=== PATIENT | female | born 1980 | race Hispanic/Latino ===

== ENCOUNTER 2017-08-12 14:01 | Inpatient (IN) | payer SELFPAY ==
[2017-08-12] MEDS ORDERED: diphenhydrAMINE 25 MG CAP PO PRN (17:03)
[2017-08-12] MEDS ORDERED: Ondansetron HCl/PF 4 MG/2 ML Vial IVP PRN (17:03)
[2017-08-12] MEDS ORDERED: Acetaminophen 325 MG TAB PO PRN (17:03)
[2017-08-12] MEDS ORDERED: Mag-Al 1200 mg/1200 mg/30 ML UDCUP PO PRN (17:03)
[2017-08-12] MEDS ORDERED: Bisacodyl 5 MG TAB PO PRN (17:03)
[2017-08-12] MEDS ORDERED: hydrALAZINE 20 MG/ML VIAL SLOW IVP PRN (17:03)
[2017-08-12] MEDS: Sodium Chloride 0.9% 1,000 ML IV SCH (18:20)
[2017-08-12 18:27] VITALS: BMI 24.4
--- NOTE | 2017-08-12 20:04 | CON ---
DATE OF CONSULTATION: 08/12/2017 REQUESTING PHYSICIAN: Dr. Ames. HISTORY OF PRESENT ILLNESS: Ms. Pérez is a 36-year-old woman who was seen earlier today [facility]. The patient presented with 2-day history of crampy abdominal pain, which was initially periumbilical but now diffuse. Pain is rated at 8/10. The patient underwent workup there including a CT scan of the abdomen and pelvis, which was suspiciou s for small-bowel obstruction. Hence, she was transferred to [facility] for upper level of care. At the time of my evaluation, the patient is awake and alert. She reported having had two bouts of bilious emesis in [place] prior to transfer. Currently, she reports 4/10 abdominal pain. She has a nasogastric tube in place, which returns a very scant nonbilious effluent about 20 mL, the tube hassan s been there for over 2 hours now. She denies any fevers or chills. Last bowel movement was 2 days ago, although she has a history of chronic constipation. Last time, she passed flatus was last night . The patient denies any unexplained weight loss. PAST MEDICAL HISTORY: She denies any significant medical problems. PAST SURGICAL HISTORY: Pertinent for laparoscopic cholecystectomy in 2015. She also has had bilater al tubal ligation. FAMILY HISTORY: Notable for heart disease and essential hypertension. She denies any family history of cancer or inflammatory bowel disease. SOCIAL HISTORY: She is and lives at home with her and 4 little children. She denies any cigarette smoking, ethanol or illicit drug abuse. PREHOSPITALIZATION MEDICATIONS: None. ALLERGIES: Patient denies any known drug allergies. REVIEW OF SYSTEMS: A 10-point review of systems essentially unremarkable except for as stated in pas t medical history and chief complaint. PHYSICAL EXAMINATION: GENERAL: This reveals a 36-year-old normally developed woman who is otherwise coherent and interacti ve and appears stated age. The patient is alert and oriented x3, appears to be in no significant acu te distress at the time of my evaluation. VITAL SIGNS: Includes blood pressure 104/72, pulse 94, respiratory rate 19, temperature 98.5 degrees Fahrenheit, oxygen saturation is 95% on room air. HEENT: Reveals normocephalic and atraumatic. Pupils are equal, round, and reactive to light and acc ommodation. Extraocular muscles are intact bilaterally. She has no sclerae icterus present. Oral m ucosa is pink and moist. No lesions are noted. HEART: Reveals regular rate and rhythm, no murmurs or gallops auscultated. LUNGS: Clear to auscultation bilaterally. Her breathing regular and unlabored. ABDOMEN: Soft and nondistended. She has moderate tenderness with deep palpation. She has no gross rebound tenderness present. Liver and spleen are nonpalpable below costal margins. EXTREMITIES: Reveals 2+ radial and pedal pulses bilaterally. No ankle edema is present. NEUROLOGIC: Reveals no focal deficits present. ACCOMPANYING LABORATORY STUDIES: Includes a CBC with 10,500 white blood cells, hemoglobin 14.8, danilo tocrit is 40.5, platelet count is 289,000. Metabolic profile: Sodium 141, potassium 3.9, chloride i s 100, bicarbonate 29, BUN 9.1, creatinine is 0.8, glucose 106. AST and ALT are 21 and 21 respective ly. Serum lipase is normal at 15. IMAGING: I personally reviewed the CT scan of the abdomen and pelvis obtained in [place], which re veals distended loops of small bowel with no significant clear transition zone, although distal ileum appears to be decompressed. There is, however, gas in the colon and rectum. IMPRESSION: Abdominal pain, likely gastroenteritis versus acute partial small-bowel obstruction. RECOMMENDATIONS: The nasogastric tube could be discontinued and patient initiated on clear liquid di et. I encouraged her to ambulate to avoid complications of venous thromboembolism. There is no acut e surgical indication for this patient at this time; however, General Surgery will continue to follow the patient along with serial physical examination and make further recommendations as necessary. A sajan findings and plan discussed with the patient and her at bedside. They both indicated un derstanding of the information given. I have answered their questions. Thank you again, Dr. Ames, for allowing me the opportunity to participate in the care of this pablo ent.
--- NOTE | 2017-08-12 23:05 | HP ---
DATE OF ADMISSION: 08/12/2017 PRIMARY CARE PHYSICIAN: Maritza steen. REASON FOR ADMISSION: Abdominal pain. HISTORY OF PRESENT ILLNESS: Ms. Melanie Merino is a 36-year-old female with no significant past medica l history, who presents to the emergency room complaining of abdominal pain in the epigastric area, w hich began yesterday. She states she has had nausea and vomiting. She states her last bowel movemen t was 1-1/2 days ago. She does not recall the last time she passed gas. No fevers, no urinary sympt oms has been reported. She states she never had pain like this before. She denies any sick contacts or eating anything out of the ordinary. The patient then presented to the [facility] at which time a CAT scan was performed and revealed a partial or hyperacute distal small-bowel obstru ction as well as no CT evidence of urinary tract obstruction or calcification. She was then subseque ntly transferred to [place] for higher level of care. An NG tube was placed in the emergency room here and has been subsequently taken out by the general surgeon. Currently, she is resting comforta kristen. She denies any other discomfort except for in her abdomen. She will be now admitted to the [facility] for further evaluation. PAST MEDICAL HISTORY: Reviewed and none. PAST SURGICAL HISTORY: 1. Tubal ligation. 2. Cholecystectomy. CODE STATUS: FULL CODE. SOCIAL HISTORY: The patient denies any alcohol use, no tobacco use, no illicit drug use. MEDICATIONS: Reviewed and none. ALLERGIES: Reviewed and none. FAMILY HISTORY: Reviewed and noncontributory. REVIEW OF SYSTEMS: The following complete review of systems was negative, unless otherwise mentioned in the HPI or below: Constitutional: Weight loss or gain, sense of well-being, ability to conduct usual activities, exerc ise tolerance. Skin/Breast: Rash, itching, changes in hair growth or loss, nail changes, breast lumps, tenderness, swelling, nipple discharge. Eyes: Vision, double vision, tearing, blind spots, pain. ENT/Mouth: Headaches (location, time of onset, duration, precipitating factors), vertigo, lightheade dness, injury. Vision, double vision, tearing, blind spots, pain, nose bleeding, colds, obstruction, discharge, dental difficulties, gingival bleeding, dentures, neck stiffness, pain, tenderness, masses in thyroid or other areas. Cardiovascular: Precordial pain, substernal distress, palpitations, syncope, dyspnea on exertion, or thopnea, nocturnal paroxysmal dyspnea, edema, cyanosis, hypertension, heart murmurs, varicosities, ph lebitis, claudication. Respiratory: Pain, shortness of breath, wheezing, stridor, cough, hemoptysis, fever or night sweats. Gastrointestinal: Poor appetite, dysphagia, indigestion, abdominal pain, heartburn, eructation, naus ea, vomiting, hematemesis, jaundice, constipation, or diarrhea, abnormal stools (alexa-colored, tarry, bloody, greasy, foul smelling), flatulence, hemorrhoids, recent changes in bowel habits. Genitourinary: Urgency, frequency, dysuria, nocturia, hematuria, polyuria, oliguria, unusual (or geovany nge in) color of urine, stones, hesitancy, change in size of stream, dribbling, acute retention or in continence, libido, potency. Musculoskeletal: Pain, swelling, redness or heat of muscles or joints, limitation, of motion, muscul ar weakness, atrophy, cramps. Neurologic/Psychiatric: Convulsions, paralyses, tremor, incoordination, paresthesias, difficulties w ith memory of speech, sensory or motor disturbances, or muscular coordination (ataxia, tremor), emoti onal problems, anxiety, depression, previous psychiatric care, unusual perceptions, hallucinations. Allergy/Immunologic: Skin rash, anemia, bleeding tendency, polydipsia, polyuria, intolerance to heat or cold. PHYSICAL EXAMINATION: CONSTITUTIONAL/VITAL SIGNS: Blood pressure most recently is 99/64, respirations 15, pulse 94, O2 sat uration 99% on room air, temperature is 98.6. GENERAL: She is in no acute distress, nontoxic appearing. EYES: Pupils are equal, round, and reactive to light and accommodation. No pale conjunctivae. ENT/MOUTH: Moist oral mucosa. No lesions RESPIRATORY: Equal chest wall expansion. No wheezing, rhonchi, or rales. CARDIOVASCULAR: S1, S2 present. No murmurs, gallops or rubs. GASTROINTESTINAL: Soft. She does have tenderness in the epigastric and the left upper quadrant. No rebound tenderness. No peritoneal signs. She has hyperactive bowel sounds. LYMPHATIC: No swollen or painful cervical or axillary lymph nodes. NEUROLOGIC: No ptosis, no facial asymmetry, no tongue deviation or jaw protrusion, no focal deficits . PSYCHIATRIC: Awake, alert and oriented to time, place, and person. Answers questions appropriately. SKIN: Normal skin turgor. LABORATORY AND X-RAY FINDINGS: Laboratory evaluation taken at [facility] and reviewed by me show WBC of 10.5 with hemoglobin 14.8, hematocrit 40.5, platelet count 289,000. Sodium is 141, potassium 3.9, chloride is 100, CO2 is 29, anion gap 16, BUN 9.1, creatinine 0.8, alkaline phosphatase is 77, AST a nd ALT are 21 and 21, amylase 59, lipase 15. UA revealed 0-2 wbcs, few squamous epithelial cells, no bacteria. CT scan of the abdomen and pelvis without contrast revealed no CT evidence of urinary tract obstructi on. There is a partial or hyperacute distal small-bowel obstruction. ASSESSMENT AND PLAN: Ms. Melanie Pérez is a 36-year-old female with no significant past medical hist ory who presents to the emergency room complaining of abdominal pain. 1. Abdominal pain likely secondary to a small-bowel obstruction presented on CT. At this time, the patient will be admitted to the surgical floor. The patient has already been evaluated by the genera l surgeon, who was removed the NG tube as there was little drainage. As per the general surgeon, the re is no acute intervention needed at this time. We will continue to monitor. Restart the patient o n clear liquid diet and advance as tolerated. We will continue with IV fluids. The NG tube has been removed. There is a possibility this may be gastroenteritis versus some irritable bowel syndrome. We will continue to monitor her clinical progress. 2. IV fluids. 3. Check magnesium and phosphorus and replete accordingly. 4. Clear liquid diet. 5. P.r.n. order set. 6. FULL CODE. 7. I have explained all this to the patient and the family at bedside. They are agreeable to the pl an of treatment. All questions have been answered. The patient's further hospital course will be dictated by her clinical course while here.
[2017-08-13 00:10] LABS: RBC/HPF 0-3 HPF (0-3); Renal Epithelial None Seen HPF (0-3); Transitional Epithelial NONE SEEN HPF (0-3)
[2017-08-13 00:11] LABS: Bacteria/HPF 3+ HPF (None Seen); Crystals/HPF None Seen HPF (Negative); Hyaline Casts/LPF NONE SEEN LPF (0-3 Hyaline); Other Casts/LPF None Seen LPF (0-3 Hyaline); Yeast-All Forms None Seen HPF (None Seen)
[2017-08-13] MEDS: Sodium Chloride 0.9% 1,000 ML IV SCH (03:02)
--- NOTE | 2017-08-13 03:52 | PRG ---
DATE OF SERVICE: 08/12/2017 SUBJECTIVE: This is a 36-year-old female seen in consultation by Dr. Mobley earlier today for possibl e small-bowel obstruction. Her NG tube has been removed. She has been started on a clear-liquid t. Patient states she is tolerating said diet without any nausea or vomiting and her abdominal pain is improved. She vocalized no complaint upon my evaluation this evening. OBJECTIVE: VITAL SIGNS: Reviewed and stable. GENERAL: Patient is afebrile, resting in bed in no acute distress. LUNGS: Breathing is nonlabored. ABDOMEN: Soft, nontender, nondistended. Bowel sounds are positive. ASSESSMENT AND PLAN: As documented in daily progress note. Continue care as ordered. Continue to m onitor. If patient continues to tolerate clear liquid diet, we will likely advance first thing in th e a.m.
[2017-08-13 05:13] LABS: #Eosinphils 0.1 thou/uL (0.0-0.7); #Lymphocytes 2.1 thou/uL (1.20-3.40); #Monocytes 0.5 thou/uL (0.11-0.59); %Basophils 0.1 % (0.0-1.0); %Eosinophils 1.5 % (0.0-10.0); %Lymphocytes 31.5 % (21.0-51.0); %Monocytes 7.4 % (0.0-10.0); %Neutrophils 59.5 % (42.0-75.0); Hemoglobin 10.9 g/dL (12.0-16.0); Mean Corpuscular HGB CONC 34.3 g/dL (32.0-36.0); Mean Corpuscular Hemoglobin 32.6 pg (27.0-31.0); Mean Corpuscular Volume 94.9 fl (81.0-99.0); Mean Platelet Volume 6.2 fL (7.4-10.4); Platelet Count 209 thou/uL (130-400); RBC Distribution Width 11.5 % (11.5-14.5); Red Blood Cell (RBC) Count 3.36 mill/uL (4.20-5.40); White Blood Cell (WBC) Count 6.7 thou/uL (4.8-10.8)
[2017-08-13 05:35] LABS: Anion Gap 9 mmol/L (10-20); BUN (Urea Nitrogen) Less than 4 mg/dL (7.0-18.7); Calc. Creatinine Clearance 124 mL/min (70-130); Calcium 7.5 mg/dL (7.8-10.44); Carbon Dioxide 24 mmol/L (22-29); Chloride 112 mmol/L (98-107); Estimated GFR-MDRD Greater than 90; Glucose 92 mg/dL (70-105); Magnesium 1.6 mg/dL (1.6-2.6); Phosphorus 2.2 mg/dL (2.3-4.7); Potassium 3.7 mmol/L (3.5-5.1); Sodium 141 mmol/L (136-145)
[2017-08-13] MEDS ORDERED: Potassium Phosphate 30 MMOL in Sodium Chloride 0.9% 500 ML IVPB SCH (07:00)
--- NOTE | 2017-08-13 15:44 | PRG ---
DATE OF SERVICE: 08/13/2017 ATTENDING PHYSICIAN: Dr. Rodriguez Mobley. SUBJECTIVE: Ms. Pérez is a 36-year-old woman who was admitted one day ago with a 2-day history of abdominal pain, thought to be likely gastroenteritis versus acute partial small-bowel obstruction. She was admitted to the hospital by Hospital Medicine Service. Trauma Service was consulted to evaluate for need for surgical intervention. CT scan demonstrated distended loops of small bowel with no significant clear transition zone. There was gas through the colon and rectum. She is seen this morning and reports that she has been passing flatus. OBJECTIVE: VITAL SIGNS: Temperature 98.3, pulse 77, respirations 16, O2 sat 98% on room air and blood pressure 96/66. GENERAL: A well-nourished, well-developed female lying in bed in no acute distress. HEENT: Atraumatic and normocephalic. ABDOMEN: Soft, nontender and nondistended. Bowel sounds normal. RESPIRATORY: Bilateral breath sounds clear. CARDIOVASCULAR: Regular rate and rhythm. Heart sounds normal. NEUROLOGIC: GCS 15. Alert and oriented x3. ASSESSMENT: Likely gastroenteritis. The patient is now passing flatus. She is tolerating a clear liquid diet. She has no further abdominal pain. She is ambulatory without assistance. PLAN: Diet may be advanced to regular. Encourage ambulation. If patient tolerates regular diet without any nausea, vomiting or abdominal pain, she may be discharged from a surgical perspective. The patient was seen and examined with Dr. Mobley, who agrees with plan. [facility]
[2017-08-13 15:56] VITALS: BP 103/71; TEMP 97.8
--- NOTE | 2017-08-13 17:53 | DIS ---
DATE OF ADMISSION: 08/12/2017 DATE OF DISCHARGE: 08/13/2017 DISCHARGE DISPOSITION: Home. FOLLOWUP: Follow up with [facility] in [place] in one week. ALLERGIES: No known drug allergies. DISCHARGE MEDICATIONS: None. The patient was seen on the day of discharge. Denies any new complaints. Abdominal discomfort has i mproved. BRIEF HOSPITAL COURSE: The patient is a 36-year-old female who presented to the emergency room at [facility] with abdominal discomfort. Please refer to the history and physical dated 08/12/2017 for fur ther details. The patient was admitted to the hospital with a diagnosis of partial distal small-bowel obstruction b ased on the CT scan performed at [facility]. The patient was evaluated by General Surg corey, Dr. Mobley. NG tube was placed in the emergency room. Later on, NG tube was discontinued. The patient was started on clear liquid diet and was advanced as tolerated. Abdominal pain has completel y resolved. She has been cleared by Surgery for discharge. FINAL DIAGNOSES: 1. Distal small-bowel obstruction, resolved. 2. Suspected acute gastroenteritis, resolved. 3. Hypophosphatemia, corrected. Repeat labs as outpatient is recommended. Primary care physician a dvised to follow. 4. Dehydration. 5. Abdominal pain secondary to #1. Plan of care was discussed with the patient in detail. She stated understanding.
== END 2017-08-13 17:50 | disposition home or self-care (01) | DRG 390 ==
LOC: ERS 14:01 → SURG A 15:23
PROVIDERS: ADMIT Hospitalist; ATTEND Hospitalist
DX: K56.609 Unspecified intestinal obstruction, unspecified as to partial versus complete obstruction (principal); E83.39 Other disorders of phosphorus metabolism; K52.9 Noninfective gastroenteritis and colitis, unspecified
CPT/HCPCS: 36415; 80048; 81015; 83735; 84100; 85025; 96360; J7050